=== PATIENT | female | born 1955 | race Caucasian/White ===

== ENCOUNTER 2022-04-22 18:03 | Outpatient (REF) | payer MEDICARE, SELFPAY ==
[2022-04-22 16:50] LABS: ALT 26 U/L (14-59); AST 19 U/L (15-37); Albumin 3.8 g/dL (3.4-5.0); Alkaline Phosphatase 111 U/L (46-116); Anion Gap 6.8 mmol/L (3-11); BUN 10 mg/dL (7-18); Bilirubin, Total 0.4 mg/dL (0.2-1.0); CO2 30.2 mmol/L (21.0-32.0); CREATININE 0.8 mg/dL (0.55-1.02); Calculated LDL 143 mg/dL (<100); Chloride 102 mmol/L (98-107); Cholesterol 226 mg/dL (<200); Glucose 109 mg/dL (74-106); HDL Cholesterol 56 mg/dL (40-60); Potassium 3.9 mmol/L (3.5-5.1); Sodium 139 mmol/L (136-145); Total Protein 7.2 g/dL (6.4-8.2); Triglyceride 137 mg/dL (<150)
== END 2022-04-22 18:04 | disposition home or self-care (01) ==
LOC: NCHCN 18:03
PROVIDERS: PCP Nurse Practitioner Family; Visit Provider Physician Assistant Medical
DX: I10 Essential (primary) hypertension (principal); E78.5 Hyperlipidemia, unspecified
CPT/HCPCS: 80053; 80061

== ENCOUNTER 2023-04-18 15:09 | Outpatient (REF) | payer OTHER, SELFPAY ==
[2023-04-18 22:26] LABS: Anion Gap 5.8 mmol/L (3-11); BUN 12 mg/dL (7-18); CO2 30.2 mmol/L (21.0-32.0); CREATININE 0.9 mg/dL (0.55-1.02); Calcium 8.9 mg/dL (8.5-10.1); Chloride 104 mmol/L (98-107); Estimated GFR 70.51 (mL/min/1.73m2); Glucose 105 mg/dL (74-106); Potassium 4.4 mmol/L (3.5-5.1); Sodium 140 mmol/L (136-145)
== END 2023-04-18 15:10 | disposition home or self-care (01) ==
LOC: NCHCN 15:09
PROVIDERS: PCP Nurse Practitioner Family; Visit Provider Physician Assistant Medical
DX: I10 Essential (primary) hypertension (principal)
CPT/HCPCS: 80048

== ENCOUNTER 2023-04-27 17:19 | Outpatient (REF) | payer OTHER, SELFPAY | END 2023-04-27 17:20 | disposition home or self-care (01) | LOC: NCHCN 17:19 | PROVIDERS: PCP Nurse Practitioner Family; Visit Provider Nurse Practitioner Family | DX: R30.0 Dysuria (principal) | CPT/HCPCS: 87077; 87086; 87186 ==

== ENCOUNTER 2024-02-13 15:43 | Outpatient (REF) | payer OTHER, SELFPAY ==
[2024-02-13 18:58] LABS: Hemoglobin A1C 5.5 % (<5.7)
[2024-02-13 19:08] LABS: ALT 29 U/L (14-59); AST 19 U/L (15-37); Albumin 3.8 g/dL (3.4-5.0); Alkaline Phosphatase 105 U/L (46-116); Bilirubin, Total 0.4 mg/dL (0.2-1.0); Calculated LDL 112 mg/dL (<100); Cholesterol 198 mg/dL (<200); HDL Cholesterol 64 mg/dL (40-60); Total Protein 7.1 g/dL (6.4-8.2); Triglyceride 112 mg/dL (<150)
[2024-02-13 19:20] LABS: Bilirubin, Direct 0.1 mg/dL (0.0-0.2)
== END 2024-02-13 15:44 | disposition home or self-care (01) ==
LOC: NCHCN 15:43
PROVIDERS: PCP Nurse Practitioner Family; Visit Provider Physician Assistant Medical
DX: K81.9 Cholecystitis, unspecified (principal); E78.5 Hyperlipidemia, unspecified; R73.03 Prediabetes
CPT/HCPCS: 80061; 80076; 83036

== ENCOUNTER 2024-07-08 13:56 | Outpatient (REF) | payer MEDICARE, SELFPAY ==
--- OUTSIDE RECORDS SUMMARY | 2024-07-08 14:19 | XMS_ITS | Continuity of Care Document ---
Author Organization [facility] Address [address] [place] [address] Assessment Encounter Date Assessment Date Assessment LastModified by Organization Details LastModified Time 07/08/2024 07/08/2024 Patient presents with symptoms of UTI. Results of dipstick were positive for UTI. Advised to drink clear fluids, Tylenol for pain and take prescribed medications as instructed. Patient encouraged to follow up within 1 week if not improving. [email or web address] Not available 07/08/2024 11:26:37 Plan of Treatment Reminders Order Date Submit Date Provider Last Modified By Organization Details Last Modified Time Details Appointments Office Visit 2023 09:40A M Not available Not available Not available Medica re Annual Wellne ss 40 2023 01:00P M Not available Not available Not available Lab cultur e, urine + sensit ivity 2023 024 [facility] [address] [place] [address] [place], [address], 07/08/2024 13:36:10 urinal ysis, dipsti ck 2023 [facility] [address] [place], [address], 07/08/2024 13:36:10 Referral gyneco logist referr al - for bladde r prolap se, gettin g progre ssivel y worse over past year, intere sted in discus sing surgic al repair [facility]23 [facility], [address], [place], [address], 07/08/2024 12:40:30 Procedures None record ed. Surgeries None record ed. Imaging None record ed. Medication Orders Macrob id 100 mg capsul e 2023 024 [id number], [address] [place], [place], [id number], 07/08/2024 10:30:28 Patient TargetsNo targets recorded. Patient InstructionsNo instructions recorded. Reason for Referral Urogynecologist Referral for Prolapse of female genital organs Referring Physician: Amalia Kay, Family Medicine, Encounter Date: 02/13/2024 Budget Manager Referral for Di sorder of urinary bladder for bladder prolapse, getting progressively worse over past year, interested in discussing surgical repair Referring Physician: Carolyn Lennon, [facility], Encounter Date: 07/08/2024 Results Created Date Observation Date Name Description Value Unit Range Abnormal Flag Note LastModifiedBy Organization Detail LastModifiedTime 07/08/2007/08/2024 urina lysis , dipst ick Leukocytes Large Not Available [address], [address], 07/08/2024 10:31:25 07/08/20 24 07/08/2024 urina lysis , dipst ick Nitrite negati ve Not Available [address], [address], 07/08/2024 10:31:25 07/08/20 24 07/08/2024 urina lysis , dipst ick Urobilinogen .2 Not Available [address], [address], 07/08/2024 10:31:25 07/08/20 24 07/08/2024 urina lysis , dipst ick Protein Trace Not Available [address], [place], [address], 07/08/2024 10:31:25 07/08/20 24 07/08/2024 urina lysis , dipst ick pH 6.0 Not Available [facility] [address] [place], [address], 07/08/2024 10:31:25 07/08/20 24 07/08/2024 urina lysis , dipst ick Blood Non-He molyze d: Modera te Not Available [facility] [address] [place], [address], 07/08/2024 10:31:25 07/08/20 24 07/08/2024 urina lysis , dipst ick Specific [place] 1.015 Not Available [address], [address], 07/08/2024 10:31:25 07/08/20 24 07/08/2024 urina lysis , dipst ick Ketone Negati ve Not Available [address], [address], 07/08/2024 10:31:25 07/08/20 24 07/08/2024 urina lysis , dipst ick Bilirubin Negati ve Not Available [address], [address], 07/08/2024 10:31:25 07/08/20 24 07/08/2024 urina lysis , dipst ick Glucose Negati ve Not Available [address], [address], 07/08/2024 10:31:25 07/08/20 24 07/08/2024 urina lysis , dipst ick Appearance Cloudy Not Available [address], [address], 07/08/2024 10:31:25 07/08/20 24 07/08/2024 urina lysis , dipst ick Color Yellow Not Available [facility] [address] [facility], [place], [address], 07/08/2024 10:31:25 06/23/20 24 09/30/2020 MAMMO , diagn ostic No observ ation record ed. Not Available 06/23 23:03:16 06/23/20 24 01/26/2021 CT, head or brain No observ ation record ed. Not Available 06/23 23:03:17 06/23/20 24 12/09/2020 US, abdom en No observ ation record ed. Not Available 06/23 23:03:18 06/23/20 24 02/01/2021 imagi ng/di agnos tic resul t No observ ation record ed. Not Available 06/23 23:03:19 Result Notes None recorded. Problems Name Problem SNOMED Code Status Onset Date Resolution Date Notes Provider Name and Address Organization Details Recorded Time Wilmer tamez wandyen rosa 48492696 Active 202104/18/20 23 - Comments only - Amalia Kay PA-C - Today's BP suggests fair control on HCTZ 12.5mg QD. Problem Code: I10; Problem Code Type: ICD-10; Not Available [facility] 3 05:10:42 Headache 86343095 Active 2021 Problem Code: R51.9; Problem Code Type: ICD-10; Not Available [facility] 05:10:42 Cervical radiculo brandt 98057751 Active 202104/29/20 22 - Comments only - Amalia Wolfe Sxs stable at present with chiropra ctic treatmen t alone. Will give further consider ation towards scheduli ng for imaging studies to guide pain clinic vs neurosur rohit interven tions if sxs prove progress maureen in the future. Problem Code: M54.12; Problem Code Type: ICD-10; Not Available [facility] 3 05:10:42 Hyperlip idemia 36634241 Active 2021 Problem Code: E78.5; Problem Code Type: ICD-10; Not Available [facility] 3 05:10:42 Spasm 53367386 Active 2021 Problem Code: M62.838; Problem Code Type: ICD-10; Not Available [facility] 3 05:10:42 Fatigue 70009062 Active 2021 Problem Code: R53.83; Problem Code Type: ICD-10; Not Available [facility] 3 05:10:42 Counseli ng Completed 202105/06/2022 04/29/20 22 - Comments only - Amalia Kay PA-C - Old records from previous provider reviewed and flagged for chart updating Problem Code: Z71.89; Problem Code Type: ICD-10; Not Available [facility] 3 05:10:42 Prediabe partha 159417012 Active 202104/18/20 23 - Comments only - Amalia Kay PA-C - - PREDM As it was overlook ed again today, will plan to repeat A1C with next visit as monitori ng Problem Code: R73.03; Problem Code Type: ICD-10; Not Available [facility] 3 05:10:42 Dysuria 11193641 Active 2022 Problem Code: R30.0; Problem Code Type: ICD-10; Not Available [facility] 3 05:10:43 Disorder of urinary bladder 46503061 Active 202204/30/20 23 - Comments only - Carolyn Dougherty [facility] - - Referral generate d to Dr Brooks at [facility] Problem Code: N32.9; Problem Code Type: ICD-10; Not Available [facility] 3 05:10:43 Cholecys tectomy Active 2023 darin at [facility] in [place], [place] Tonya Colby RN null, [facility] 4 13:35:06 Problem Notes None recorded. Medical Equipment None Reported. Allergies Allergen ID Allergen Name Allergen Category Reaction Reaction Severity Criticality Documentation Date Start Date Code Code System Note Provider Name and Address Organization Details Recorded Time 44409 Medicinal product containin g penicilli n and acting as antibacte rial agent (product) medicatio n rash moderate Not available 08/18/20232021 25662 05 SNOMED rash Aller gyNam e: 'PENC ILLIN '; Not Available [facility] 3 16:19:12 48234 doxycycli ne monohydra te medicatio n rash moderate Not available 08/18/20232021 58522 2 RxNorm rash Not Available [facility] 3 16:19:12 99280 Bactrim medicatio n rash moderate Not available 08/18/20232021 30125 9 RxNorm rash Not Available [facility] 3 16:19:12 23861 Keflex medicatio n rash vomiting Not available Not available unabletoasse 07/08/2024 14960 [address], [place], [address] , [facility] 4 10:26:28 90942 Levaquin medicatio n rash vomiting Not available Not available unabletoasse 07/08/2024 [address], [place], [address] , [facility] 4 10:27:20 Medications Name Sig Start Date Stop Date Status Note LastModified by Organization Details LastModified Time Prescript ion - Renewal active mont[place] ast 10 mg tablet, hydrochl orothiaz fernando 12.5 mg tablet Not Available Not Available Not Available cyclobenz aprine 10 mg tablet Take 1 tablet by mouth three times a day as needed 04/22 completed Not Available Not Available Not Available azithromy juan 250 mg tablet TAKE 2 TABLETS (500 MG) BY ORAL ROUTE ONCE DAILY FOR 1 DAY THEN 1 TABLET (250 MG) BY ORAL ROUTE ONCE DAILY FOR 4 DAYS active Not Available Not Available No t Available fosfomyci n trometham ine 3 gram oral packet Take 1 packet by mouth single dose Mix one packet in 8 oz. water 05/09 completed Not Available Not Available Not Available IBU 800 mg tablet Take 1 tablet by mouth every eight hours as needed 02/12 completed Not Available Not Available Not Available Macrobid 100 mg capsule Take 1 capsule by mouth twice a day 2023 active Not Available Not Available Not Avai lable gabapenti n 300 mg capsule Take 1 capsule by mouth once a day 04/22 completed Not Available Not Available Not Available monteluka st 10 mg tablet TAKE 1 TABLET EVERY DAY active Not Available Not Available No t Available hydrochlo rothiazid e 12.5 mg tablet TAKE 1 TABLET EVERY DAY active Not Available Not Available No t Available Vitamin D3 125 mcg (5,000 unit) tablet Take 1 tablet by mouth once a day active Not Available Not Available No t Available Vitals Date Recorded Body height Heart rate Body mass index (BMI) Body weight Systolic blood pressure Diastolic blood pressure Provider Name and Address Organization Details Last Updated DateTime 4 160.02 cm 76 /min 22.3 kg/m2 90657.6 4 g 150 mm[Hg] 74 mm[Hg] Tanja neal LPN [facility] 4 09:51:44 Social History None recorded. Functional Status None recorded. Mental Status None recorded. Family History Relationship Description Onset Age of this Age Resolved Age Notes LastModified by Organization Details LastModified Time Father Family history of Hypertension deaswati [email or web address] Not available 08/18/2023 04:00:43 Father No family history of respiratory disease deakatjaa keely [email or web address] Not available 08/18/2023 04:00:44 Mother Family history of malignant neoplasm metast atic pancre atic cancer [email or web address] Not available 08/18/2023 04:00:44 Medical History No medical history recorded. Gynecological HistoryNo gynecological history recorded. Obstetrics History GPAL:G 0 P 0 0 0 0 Immunizations Vaccine Type Date Status Provider Name and Address Organization Details Recorded Time Influenza, high-dose, quadrivalent, PF 07/29/2022 completed Not Available [facility] 08/18/2023 04:51:54 COVID-19, mRNA, LNP-S, bivalent, PF, 30 mcg/0.3 mL dose 07/29/2022 completed Not Available [facility] 08/18/2023 04:51:54 influenza, unspecified formulation 07/07/2020 completed Not Available [facility] 08/18/2023 04:51:55 influenza, unspecified formulation 07/26/2021 completed Not Available [facility] 08/18/2023 04:51:55 Past Encounters Encounter ID Performer Location Encounter Start Date Encounter Closed Date Diagnosis/Indication Diagnosis SNOMED-CT Code Diagnosis ICD10 Code [id number] JOANN FERNANDES [address] [address] 07/08/2024 09:45:10 07/08/2024 10:29:55 Acute urinary tract infection 190283894 N39.0 Disorder o f urinary bladder 44967142 N32.9 Health Concerns Section Related Observation LastModified by Organization Detai ls LastModified Time None Recorded Concern Status LastModified by Organization Details LastModified Time None Recorded Payers Encounter Date Sequence Insurance Name Policy Number Policy Lamb Covered Member ID Lamb Member ID Guarantor Name 07/08/2024 1 [employer] (MEDICARE REPLACEMENT/A DVANTAGE - PPO) Aimee Carmichael [id number] Aimee Carmichael Notes Date Note Type Note Provider Name and Address Organization Details Recorded Time 07/08/2024 text/html HPI Notes: Acute visit - dysuria, frequency, hematuria Cancelled 06/28/24 [facility] [place] - was taking care of brother in law who was newly on hospice. Would like closer referral if possible. Has a friend who had surgical repair for bladder prolapse at [facility]. Streaks of blood in her urine yesterday, ongoing dysuria. Onset of bladder spasms and increased frequency 06/02/24. Denies fever, chills, flank pain. JOANN NEAL [facility] [address], [place], [address], [facility]. 07/08/2024 11:27:52 OBGyn Episode No OBEpisode recorded.
--- OUTSIDE RECORDS SUMMARY | 2024-07-08 14:19 | XMS_ITS | Data Portability ---
Author Organization ID - [facility] Address [address] [place] [id number] Assessment Encounter Date Assessment Date Assessment LastModified by Organization Details LastModified Time 07/08/2024 07/08/2024 Patient presents with symptoms of UTI. Results of dipstick were positive for UTI. Advised to drink clear fluids, Tylenol for pain and take prescribed medications as instructed. Patient encouraged to follow up within 1 week if not improving. [email or web address] Not available 07/08/2024 11:26:37 Plan of Treatment Reminders Order Date Submit Date Provider Last Modified By Organization Details Last Modified Time Details Appointments Office Visit 30 2023 09:40A M Not available Not available Not available Medica re Annual Wellne ss 40 2023 01:00P M Not available Not available Not available Lab hepati c functi on panel, serum 2023 024 [place] [facility] (Registration ), [address] [place] [address] [place], [address], 02/13/2024 19:13:01 HbA1c (hemog lobin A1c), blood 2023 024 [email or web address] [facility] (Registration ), [address] [place] [address] [place], [address], 02/23/2024 08:00:48 lipid panel, serum 2023 024 [email or web address] [facility] (Registration ), [address] [place] [address] [place], [address], 02/23/2024 08:00:40 influe nza virus A + B + SARS-C oV-2 (COVID 19) Ag panel, rapid IA, upper respir atory specim en 2023 024 [email or web address] [facility], [address] [place], [address], 04/17/2024 14:00:42 cultur e, urine + sensit ivity 2023 024 [facility] (Registration ), [address] [place] [address] [place], [address], 07/08/2024 13:36:10 urinal ysis, dipsti ck 2023 024 [facility], [address] [place], [address], 07/08/2024 13:36:10 Referral urogyn ecolog ist referr al 2023 024 [facility], 1928–1983 Urogynecology , [address] [place], [address], 07/06/2024 04:07:48 gyneco logist referr al - for bladde r prolap se, gettin g progre ssivel y worse over past year, intere sted in discus sing surgic al repair 2023 024 [facility], [address] [facility], [place], [address], 07/08/2024 12:40:30 Procedures None record ed. Surgeries None record ed. Imaging None record ed. Medication Orders Zithro max Z-Sp 250 mg tablet 2023 024 [id number], [address] [place] [address], [id number], 04/17/2024 14:01:04 Macrob id 100 mg capsul e 2023 024 [place] [id number], [address], [place], [phone], 07/08/2024 10:30:28 Patient TargetsNo targets recorded. Patient InstructionsNo instructions recorded. Reason for Referral Urogynecologist Referral for Prolapse of female genital organs Referring Physician: Isabelle Rios, Family Medicine, Encounter Date: 02/13/2024 [employer] Assurance Lab Technician Referral for Di sorder of urinary bladder for bladder prolapse, getting progressively worse over past year, interested in discussing surgical repair Referring Physician: Carolyn Lennon, Family Medicine, Encounter Date: 07/08/2024 Results Created Date Observation Date Name Description Value Unit Range Abnormal Flag Note LastModifiedBy Organization Detail LastModifiedTime 02/13/20 24 02/13/2024 HEMOG LOBIN A1C hemoglobin A1C 5.5 % <5.7 Refer ence Range s <5.7 Blanca l 5.7-6 .4% Predi abete s 6.5% or great er Diagn ostic for diabe partha (if confi rmed) Refer ences : 1. Ameri can Diabe partha Assoc iatio n. Clas sific ation and Diagn osis of Diabe partha. Diabe partha Care 2019 Oct;4 2(Sup pleme nt 1):S1 3-s28 . Not Available [address] [place], [address] 02/13/2024 19:12:00 02/13/2002/13/2024 LIVER PANEL total protein 7.1 g/dL 6.4-8. 2 normal Not Available [address] [place], [address] 02/13/2024 19:23:01 02/13/20 24 02/13/2024 LIVER PANEL albumin 3.8 g/dL 3.4-5. 0 normal Not Available [address] [place], [address] 02/13/2024 19:23:01 02/13/20 24 02/13/2024 LIVER PANEL bilirubin, total 0.4 mg/dL 0.2-1. 0 normal Not Available [address] [place], [address] 02/13/2024 19:23:01 02/13/20 24 02/13/2024 LIVER PANEL alk phos 105 U/L 46-116 normal Not Available [address] [place], [address] 02/13/2024 19:23:01 02/13/20 24 02/13/2024 LIVER PANEL AST 19 U/L 15-37 normal Not Available [facility] [address] [place], [address] 02/13/2024 19:23:01 02/13/20 24 02/13/2024 LIVER PANEL ALT 29 U/L 14-59 normal Not Available [facility] [address] [place], [address] 02/13/2024 19:23:01 02/13/20 24 02/13/2024 LIVER PANEL bilirubin, conjugated 0.1 mg/dL 0.0-0. 2 normal Not Available [address] [place], [address] 02/13/2024 19:23:01 02/13/20 24 02/13/2024 LIPID 2 cholesterol 198 mg/dL <200 Not Available [address] [place], [address] 02/13/2024 19:13:01 02/13/20 24 02/13/2024 LIPID 2 triglyceride 112 mg/dL <150 Not Available [address] [place], [address] 02/13/2024 19:13:01 02/13/20 24 02/13/2024 LIPID 2 HDL cholesterol 64 mg/dL 40-60 Not Available [facility] [address] [place], [address] 02/13/2024 19:13:01 02/13/20 24 02/13/2024 LIPID 2 calculated LDL 112 mg/dL <100 high Natio nal Екатерина stero l Educa tion Progr am (NCEP -ATPI II) class ifica tions : Екатерина stero l <200 mg/dL Sanaz able Екатерина stero l 200-2 39 mg/dL Borde rline High Екатерина stero l >or=2 40 mg/dL High HDL <40 mg/dL Low HDL >or=6 0 mg/dL High LDL <100 mg/dL Optim al LDL 100-1 29 mg/dL Near Optim al/Ab ove Optim al LDL 130-1 59 mg/dL Borde rline High LDL 160-1 89 mg/dL High LDL >or=1 90 mg/dL Very High *The above refer ence range is for adult s 18 years or older . Not Available [address] [place], [address] 02/13/2024 19:13:01 02/13/20 24 02/13/2024 LIPID 2 cholesterol 198 mg/dL <200 Not Available [address] [place], [address] 02/13/2024 19:23:03 02/13/20 24 02/13/2024 LIPID 2 triglyceride 112 mg/dL <150 Not Available [address] [place], [address] 02/13/2024 19:23:03 02/13/20 24 02/13/2024 LIPID 2 HDL cholesterol 64 mg/dL 40-60 Not Available [address] [place], [address] 02/13/2024 19:23:03 02/13/20 24 02/13/2024 LIPID 2 calculated LDL 112 mg/dL <100 high Natio nal Екатерина stero l Educa tion Progr am (NCEP -ATPI II) class ifica tions : Екатерина stero l <200 mg/dL Sanaz able Екатерина stero l 200-2 39 mg/dL Borde rline High Екатерина stero l >or=2 40 mg/dL High HDL <40 mg/dL Low HDL >or=6 0 mg/dL High LDL <100 mg/dL Optim al LDL 100-1 29 mg/dL Near Optim al/Ab ove Optim al LDL 130-1 59 mg/dL Borde rline High LDL 160-1 89 mg/dL High LDL >or=1 90 mg/dL Very High *The above refer ence range is for adult s 18 years or older . Not Available [facility] [address] [place], [address] 02/13/2024 19:23:03 04/17/20 24 04/17/2024 influ jossie virus A + B + SARS- CoV-2 (COVI D19) Ag panel , rapid IA, upper respi rator y speci men Influenza A negati ve Not Available [facility] [address] [place], [address], 04/17/2024 09:59:12 04/17/20 24 04/17/2024 influ jossie virus A + B + SARS- CoV-2 (COVI D19) Ag panel , rapid IA, upper respi rator y speci men Influenza B negati ve Not Available [facility] [address] [place], [address], 04/17/2024 09:59:12 04/17/20 24 04/17/2024 influ jossie virus A + B + SARS- CoV-2 (COVI D19) Ag panel , rapid IA, upper respi rator y speci men SARS-COV-2 negati ve Not Available [facility] [address] [place], [address], 04/17/2024 09:59:12 04/17/20 24 04/17/2024 influ jossie virus A + B + SARS- CoV-2 (COVI D19) Ag panel , rapid IA, upper respi rator y speci men Sample sent for PCR confirmation No Not Available [facility] [address] [place], [address], 04/17/2024 09:59:12 07/08/20 24 07/08/2024 urina lysis , dipst ick Leukocytes Large Not Available [facility] [address] [place], [address], 07/08/2024 10:31:25 09/30/20 24 07/08/2024 urina lysis , dipst ick Nitrite negati ve Not Available [address], [address], 07/08/2024 10:31:25 07/08/20 24 07/08/2024 urina lysis , dipst ick Urobilinogen .2 Not Available [address], [address], 07/08/2024 10:31:25 07/08/20 24 07/08/2024 urina lysis , dipst ick Protein Trace Not Available [address], [address], 07/08/2024 10:31:25 07/08/20 24 07/08/2024 urina lysis , dipst ick pH 6.0 Not Available [address], [address], 07/08/2024 10:31:25 07/08/20 24 07/08/2024 urina lysis , dipst ick Blood Non-He molyze d: Modera te Not Available [address], [address], 07/08/2024 10:31:25 07/08/20 24 07/08/2024 urina lysis , dipst ick Specific [place] 1.015 Not Available [address], [address], 07/08/2024 10:31:25 07/08/20 24 07/08/2024 urina lysis , dipst ick Ketone Negati ve Not Available [address], [address], 07/08/2024 10:31:25 09/30/07/08/2024 urina lysis , dipst ick Bilirubin Negati ve Not Available [facility] [address] [place], [address], 07/08/2024 10:31:25 07/08/20 24 07/08/2024 urina lysis , dipst ick Glucose Negati ve Not Available [facility] [address] [place], [address], 07/08/2024 10:31:25 07/08/20 24 07/08/2024 urina lysis , dipst ick Appearance Cloudy Not Available [facility] [address] [place], [address], 07/08/2024 10:31:25 07/08/20 24 07/08/2024 urina lysis , dipst ick Color Yellow Not Available [facility] [address] [place], [address], 07/08/2024 10:31:25 06/23/20 24 09/30/2020 MAMMO , [...] and Address Organization Details Recorded Time Wilmer joi sabasarah schofieldon [id number] Active 202104/18/20 23 - Comments only - Isabelle Rios PA-C - Today's BP suggests fair control on HCTZ 12.5mg QD. Problem Code: I10; Problem Code Type: ICD-10; Not Available [facility] 3 05:10:42 Headache 44996462 Active 2021 Problem Code: R51.9; Problem Code Type: ICD-10; Not Available [facility] 3 05:10:42 Cervical radiculo brandt 56149817 Active 202104/29/20 22 - Comments only - Isabelle Rios PA-C - Sxs stable at present with chiropra ctic treatmen t alone. Will give further consider ation towards scheduli ng for imaging studies to guide pain clinic vs neurosur rohit interven tions if sxs prove progress maureen in the future. Problem Code: M54.12; Problem Code Type: ICD-10; Not Available [facility] 3 05:10:42 Hyperlip idemia 17909949 Active 2021 Problem Code: E78.5; Problem Code Type: ICD-10; Not Available [facility] 3 05:10:42 Spasm 04360978 Active 2021 Problem Code: M62.838; Problem Code Type: ICD-10; Not Available [facility] 3 05:10:42 Fatigue 44533287 Active 2021 Problem Code: R53.83; Problem Code Type: ICD-10; Not Available [facility] 3 05:10:42 Counseli ng Completed 202105/06/2022 04/29/20 22 - Comments only - Isabelle Rios PA-C - Old records from previous provider reviewed and flagged for chart updating Problem Code: Z71.89; Problem Code Type: ICD-10; Not Available [facility] 3 05:10:42 Prediabe partha 171715326 Active 202104/18/20 23 - Comments only - Isabelle Rios PA-C - - PREDM As it was overlook ed again today, will plan to repeat A1C with next visit as monitori ng Problem Code: R73.03; Problem Code Type: ICD-10; Not Available [facility] 3 05:10:42 Dysuria 44762354 Active 2022 Problem Code: R30.0; Problem Code Type: ICD-10; Not Available [facility] 3 05:10:43 Disorder of urinary bladder 92358546 Active 202204/30/20 23 - Comments only - Carolyn Colvin -Willie [facility]- - - Referral generate d to Dr Brooks at [facility] Urology Problem Code: N32.9; Problem Code Type: ICD-10; Not Available [facility] 3 05:10:43 Cholecys tectomy Active 2023 [facility] [place] [facility] [place], [place] Tonya Colby RN [facility] 4 13:35:06 Problem Notes None recorded. Procedures Surgical History None recorded. Imaging Results Imaging Date Name Status LastModified by Organiz ation Details LastModified Time 09/30/2020 MAMMO, diagnostic completed Information not available 06/23/2024 23:03:16 01/26/2021 CT, head or brain completed Information not available 06/23/2024 23:03:17 12/09/2020 US, abdomen completed Information n ot available 06/23/2024 23:03:18 02/01/2021 imaging/diagnos tic result completed Information not available 06/23/2024 23:03:19 Procedure Notes None recorded. Medical Equipment None Reported. Allergies Allergen ID Allergen Name Allergen Category Reaction Reaction Severity Criticality Documentation Date Start Date Code Code System Note Provider Name and Address Organization Details Recorded Time 80242 Medicinal product containin g penicilli n and acting as antibacte rial agent (product) medicatio n rash moderate Not available 08/18/20232021 67516 05 SNOMED rash Aller gyNam e: 'PENC ILLIN '; Not Available [facility] 3 16:19:12 25982 doxycycli ne monohydra te medicatio n rash moderate Not available 08/18/20232021 2 RxNorm rash Not Available [facility] 3 16:19:12 22949 Bactrim medicatio n rash moderate Not available 08/18/20232021 75017 9 RxNorm rash Not Available [facility] 3 16:19:12 01170 Keflex medicatio n rash vomiting Not available [facility] 07/08/2024 57746 7 RxNorm CAROLYN MANJARREZ [facility] [address], [place], [address], [facility] 4 10:26:28 89673 Levaquin medicatio n rash vomiting Not available Not available [facility] 07/08/2024 50845 2 RxNorm CAROLYN MANJARREZ [facility] [address], [place], [address] , [facility] 4 10:27:20 Medications Name Sig Start [...] Vitals Date Recorded Body height Heart rate Oxygen saturation Oxygen saturation in Arterial blood by Pulse oximetry Body temperature Body mass index (BMI) Body weight Systolic blood pressure Diastolic blood pressure Provider Name and Address Organization Details Last Updated DateTime 4 160.02 cm 73 /min 95 % 95 % 97 [degF] 23.5 kg/m2 57820.3 5 g 102 mm[Hg] 60 mm[Hg] Tanja neal [facility] 4 13:05:43 Date Recorded Body height Body temperature Heart rate Systolic blood pressure Diastolic blood pressure Provider Name and Address Organization Details Last Updated DateTime 04/17/2024 160.02 cm 98.5 [degF] 76 /min 142 mm[Hg] 70 mm[Hg] CORDELL VALLE [facility] 4 13:39:54 Date Recorded Body height Heart rate Body mass index (BMI) Body weight Systolic blood pressure Diastolic blood pressure Provider Name and Address Organization Details Last Updated DateTime 4 160.02 cm 76 /min 22.3 kg/m2 74169.6 4 g 150 mm[Hg] 74 mm[Hg] Tanja neal [facility] 4 09:51:44 Social History None recorded. Functional Status None recorded. Mental Status None recorded. Family History Relationship Description Onset Age of this Age Resolved Age Notes LastModified by Organization Details LastModified Time Father Family history of Hypertension deaswati [email or web address] Not available 08/18/2023 04:00:43 Father No family history of respiratory disease deacea keely Not available 08/18/2023 04:00:44 Mother Family history of malignant neoplasm metast atic pancre atic cancer Not available 08/18/2023 04:00:44 Medical History No medical history recorded. Gynecological HistoryNo gynecological history recorded. Obstetrics History GPAL:G 0 P 0 0 0 0 Immunizations Vaccine Type Date Status Provider Name and Address Organization Details Recorded Time Influenza, high-dose, quadrivalent, PF 07/29/2022 completed Not Available [facility] 08/18/2023 04:51:54 COVID-19, mRNA, LNP-S, bivalent, PF, 30 mcg/0.3 mL dose 07/29/2022 completed Not Available [facility] 08/18/2023 04:51:54 influenza, unspecified formulation 07/07/2020 completed Not Available [facility] 08/18/2023 04:51:55 influenza, unspecified formulation 07/26/2021 completed Not Available [facility] 08/18/2023 04:51:55 Past Encounters Encounter ID Performer Location Encounter Start Date Encounter Closed Date Diagnosis/Indication Diagnosis SNOMED-CT Code Diagnosis ICD10 Code [id number] ISABELLE RIOS PA-C [address] [address] 02/13/2024 12:29:34 02/13/2024 14:46:53 Cholecystitis 11312791 K81.9 Dyslipidemia 355185617 E 78.5 Prediabetes 539713241 R7 3.03 Essential hypertension 03888649 I10 Prolapse o f female genital organs 94703847 N81.9 [id number] ISABELLE RIOS PA-C [address] [address] 04/17/2024 13:27:10 04/17/2024 13:54:35 Acute upper respiratory infection 88367299 J06.9 [id number] RASHIDA FERNANDESP-BC [address] [address] 07/08/2024 09:45:10 07/08/2024 10:29:55 Acute urinary tract infection 946051928 N39.0 Disorder o f urinary bladder 54847292 N32.9 Health Concerns Section Related Observation LastModified by Organization Detai ls LastModified Time None Recorded Concern Status LastModified by Organization Details LastModified Time None Recorded Advance Directives Directive None Recorded Payers Encounter Date Sequence Insurance Name Policy Number Policy Lamb Covered Member ID Lamb Member ID Guarantor Name 02/13/2024 1 [employer] (MEDICARE REPLACEMENT/A DVANTAGE - PPO) [facility] [id number] [facility] 04/17/2024 1 HUMAN[employer]erry (MEDICARE REPLACEMENT/A DVANTAGE - PPO) [id number] 07/08/2024 1 [employer]erry (MEDICARE REPLACEMENT/A DVANTAGE - PPO) [facility] [id number] Notes Date Note Type Note Provider Name and Address Organization Details Recorded Time 02/13/2024 text/html HPI Notes: 68y/o female presenting for f/u hospitalization. Karlee required to seek evaluation via ED in [place] 11/08/23 due to acute abdominal pain. Ultimately was found to be suffering acute cholecystitis and underwent cholecystectomy the following day. D/C'd to 11/10/23. On presentation today, patient reports she has recovered well s/p surgery. Has been following low fat diet due to lipid levels reported to have been found significantly elevated during hospital stay. Denies ongoing abdominal pain. No issues with indigestion or N/V. Bowels moving OK. Afebrile. Karlee mentions ongoing issues with ?bladder prolapse, for which she was previously treated with course of pelvic floor PT historically. Referred to [facility] urology by SATNAM boswell in April, however, CXd due to specialty service provided indicated they did not offer treatment for this condition. On presentation today, Karlee reports feeling of pelvic/vaginal pressure with prolonged standing. No acute irritative voiding sxs, gross hematuria, and/or issues with urinary incontinence. Likewise, denies abnormal vaginal d/c or skin breakdown issues. [address], [place], [address], [facility]. 02/19/2024 14:28:57 04/17/2024 text/html HPI Notes: 68y/o female presenting with c/o ?sinus infection. Karlee reports that over the past week she has felt ill with URI sxs. Describes more acute onset of intense sinus congestion with purulent nasal drainage. Face and dentures/jaws ache; ears sore today. Denies cough. Without fever. No acute GI upset in the form of N/V/D. [address], [place], [address], [facility], [facility]. 04/17/2024 14:01:00 07/08/2024 text/html HPI Notes: Acute visit - dysuria, frequency, hematuria Cancelled 06/28/24 [facility] Urogyn appt - was taking care of brother in law who was newly on hospice. Would like closer referral if possible. Has a friend who had surgical repair for bladder prolapse at [facility]. Streaks of blood in her urine yesterday, ongoing dysuria. Onset of bladder spasms and increased frequency 06/02/24. Denies fever, chills, flank pain. CAROLYN LENNON, ADULT CROSSING GUARD- [address], [place], [address], [facility]. 07/08/2024 11:27:52 OBGyn Episode No OBEpisode recorded.
--- OUTSIDE RECORDS SUMMARY | 2024-07-08 14:20 | XMS_ITS | Encounter Summary ---
Author Organization [facility] [place] [address] Care Team Providers Care Delivery Driver/Customer Service Name Role Phone Unavailable Primary Care Provider Unavailabl e Encounter Details Date Type Department Care Team (Latest Contact Info) Description 05/07/2020 8:52 AM EDT - 05/07/2020 11:59 PM EDT Hospital Encounter Laboratory [facility] [place] [phone] Discharge Disposition: Home Social History Tobacco Use Types Packs/Day Years Used Date Smoking Tobacco: Never Assessed Sex and Gender Information Value Date Recorded Sex Assigned at Not on file Gender Identity Not on file Sexual Orientation Not on file documented as of this encounter Plan of Treatment Not on file documented as of this encounter Procedures Procedure Name Priority Date/Time Associated Diagnosis Comments COVID-19 PCR Routine 05/07/2020 1:40 PM EDT documented in this encounter Results * COVID-19 PCR (05/07/2020 1:40 PM EDT) SARS-CoV-2 RNA Not Detected Not Detected [facility] Comment: This result should be interpreted in combination with the clinical observations, patient history and epidemiological information. For testing of asymptomatic individuals, assay performance characteristics and clinical utility have not been evaluated. Testing for SARS-CoV-2 (Severe acute respiratory syndrome coronavirus 2, formerly known as 2019 novel coronavirus or 2019-nCoV) to aid in the diagnosis of COVID-19 is performed using the Robles RealTime SARS-CoV-2 as authorized by the FDA Emergency Use Authorization (EUA). This EUA assay is intended for In-vitro Diagnostic (IVD) use with respiratory specimens such as nasopharyngeal swabs collected from individuals during the acute phase of infection. This assay is performed based on the instructions for use provided by the [employer] and additional guidance provided by CDC and FDA. Testing is performed in the Clinical Genomics and Advanced Technology Laboratory within the Department of Pathology and Laboratory Medicine at [facility], certified under the Clinical Laboratory Improvement Amendments of 1988 (CLIA), 42 U.S.C. section 263a, to perform high complexity tests. Assay performance has been verified according to clinical laboratory regulatory requirements. Test results are provided above. A result of Not Detected indicates that the viral RNA target is not present but does not preclude SARS-CoV-2 infection. False negative results may occur if a specimen is improperly collected, transported or handled; if amplification inhibitors are present; or if inadequate numbers of viral particles are present in the specimen. A result of Detected suggests a current or recent infection and the patient is presumed to be infected. As required or requested by public health authorities, positive specimens may be sent for additional testing. Positive and negative predictive values for this test are highly dependent on disease prevalence. A result of Invalid indicates that neither the viral RNA targets nor the internal control target was detected. An invalid result suggests the presence of inhibitors. Recollection is recommended in the case of an invalid result. CDC COVID-19 criteria for testing on human specimens and clinical management guidance information are available at the CDC Coronavirus Disease 2019 (COVID-19) webpage under Information for Healthcare Professionals (https://www.cdc.gov/coronavirus/2019-ncov/hcp/index.html) Additional information about this and other EUA tests can be found in provider and patient fact sheets at the following FDA website: https://www.fda.gov/medical-devices/gillxrfdl-yuxaiwrmkg-vidujrm-devices/emergen -us e-authorizations#uaclg34olr SARS-CoV-2 RNA Source GOVERNMENT MINISTER Swab [facility] Nasopharyngeal swab (specimen) BOTH ANTERIOR NARES / Unknown Other / Unknown 05/07/2020 1:40 PM EDT 05/10/2020 2:20 PM EDT Narrative Resulting Agency Comment Spec In Lab Hal Canales MD MOLECULAR ORDERABLES [facility] [place] [address] documented in this encounter Visit Diagnoses Not on filedocumented in this encounter
--- OUTSIDE RECORDS SUMMARY | 2024-07-08 14:20 | XMS_ITS | Encounter Summary ---
Author Organization [facility] [place] [address] Care Team Providers Care Supervisor Printing Shop Name Role Phone Unavailable Primary Care Provider Unavailabl e Encounter Details Date Type Department Care Team (Latest Contact Info) Description 08/03/2020 6:32 PM EDT - 08/03/2020 11:59 PM EDT Hospital [place] [phone] Discharge Disposition: Home Social History Tobacco Use [...] Date/Time Associated Diagnosis Comments COVID-19 PCR Routine 08/03/2020 3:33 PM EDT documented in this encounter Results * COVID-19 PCR (08/03/2020 3:33 PM EDT) SARS-CoV-2 RNA Not Detected Not Detected [facility] Comment: This result should be interpreted in combination with the clinical observations, patient history and epidemiological information in making a final diagnosis. For testing of asymptomatic individuals, assay performance characteristics and clinical utility have not been evaluated. Testing for SARS-CoV-2 (Severe acute respiratory syndrome coronavirus 2, formerly known as 2019 novel coronavirus or 2019-nCoV) to aid in the diagnosis of COVID-19 is performed using the [employer] m SARS-CoV-2 Assay as authorized by the FDA Emergency Use Authorization (EUA). This EUA assay is intended for In-vitro Diagnostic (IVD) use with respiratory specimens such as nasopharyngeal swabs collected from individuals during the acute phase of infection. This assay is performed based on the instructions for use provided by [employer] and additional guidance provided by CDC and FDA. Testing is performed in the Clinical Genomics and Advanced Technology Laboratory within the Department of Pathology and Laboratory Medicine at [facility], certified under the Clinical Laboratory Improvement Amendments of 1988 (CLIA), 42 U.S.C. 263a, to perform high complexity tests. Assay performance has been verified according to clinical laboratory regulatory requirements for use with specimens collected from individuals suspected of COVID-19. Test results are provided above. A result of ? Not Detected? indicates that the viral RNA target is not present above the limit of detection, but does not preclude SARS-CoV-2 infection. False negative results may occur if a specimen is improperly collected, transported or handled; if amplification inhibitors are present; or if inadequate numbers of viral particles are present in the specimen. When a diagnostic test is negative, the possibility of a false negative result should be considered in the context of a patient? s recent exposures and the presence of clinical signs and symptoms consistent with COVID-19. A result of ? Detected? indicates that RNA from SARS-CoV-2 was detected and the patient is infected. As required or requested by public health authorities, positive specimens may be sent for additional testing. Positive and negative predictive values for this test are highly dependent on disease prevalence. A result of ? Invalid? indicates that neither the viral RNA targets nor the internal control target was detected. An invalid result suggests the presence of inhibitors. Recollection and re-testing is recommended in the case of an invalid result. CDC COVID-19 criteria for testing on human specimens and clinical management guidance information are available at the CDC Coronavirus Disease 2019 (COVID-19) webpage under ? Information for Healthcare Professionals? (https://www.cdc.gov/coronavirus/2019-ncov/hcp/index.html) Additional information about this and other EUA tests can be found in provider and patient fact sheets at the following FDA website: https://www.fda.gov/medical-devices/ujdvowxodhs-ymfgmtk-8709-vyfom-04-naijltvla- use-a gdeqitgowyxuh-qlqbywm-ddblmvj/wnufv-vjmyvkpyzms-waml SARS-CoV-2 RNA Source Nasal [facility] Specimen from nose (specimen) Other / Unknown 08/03/2020 3:33 PM EDT 08/06/2020 8:54 PM EDT Narrative Resulting Agency Comment Spec In Lab Hal Canales MD MOLECULAR ORDERABLES [facility] [place] [address] documented in this encounter Visit Diagnoses Not on filedocumented in this encounter
--- OUTSIDE RECORDS SUMMARY | 2024-07-08 14:20 | XMS_ITS | Encounter Summary ---
Author Organization [facility] [place] [address] Care Team Providers Care Apprentice Embalmer Name Role Phone Unavailable Primary Care Provider Unavailabl e Encounter Details Date Type Department Care Team (Latest Contact Info) Description 01/19/2021 10:16 AM EDT - 01/19/2021 11:59 PM EDT Hospital [place] [phone] Discharge Disposition: Home Social History Tobacco Use [...] Date/Time Associated Diagnosis Comments COVID-19 PCR Routine 01/19/2021 10:01 AM EDT documented in this encounter Results * COVID-19 PCR (01/19/2021 10:01 AM EDT) SARS-CoV-2 RNA Not Detected Not Detected [facility] Comment: This result should be interpreted in combination with the clinical observations, patient history and epidemiological information. For testing of asymptomatic individuals, assay performance characteristics and clinical utility have not been evaluated. Testing for SARS-CoV-2 (Severe acute respiratory syndrome coronavirus 2, formerly known as 2019 novel coronavirus or 2019-nCoV) to aid in the diagnosis of COVID-19 is performed using the Aptima SARS Co-V-2 Assay on the [employer] System ([employer] as authorized by the FDA issued Emergency Use Authorization (EUA). This assay is intended for In-vitro Diagnostic (IVD) use with nasopharyngeal swabs collected from individuals meeting the CDC criteria for testing. The assay is performed based on the instructions for use and additional guidance provided by the FDA. Testing is performed in the Microbiology Laboratory within the Department of Pathology and Laboratory Medicine at [facility], certified under the Clinical Laboratory Improvement Amendments of 1988 (CLIA), 42 U.S.C. section 263a, to perform high-complexity tests. Assay performance has been verified according [...] the patient is presumed to be infected. Positive and negative predictive values for this test are highly dependent on disease prevalence. A result of Invalid indicates the inability to conclusively determine the presence or absence of SARS-CoV-2 RNA in the sample which can be due to a variety of factors. ??Collection of a new sample for repeat testing is recommended in the case of an invalid result. CDC COVID-19 criteria for testing on human specimens and clinical management guidance information are available at the CDC Coronavirus Disease 2019 (COVID-19) webpage under Information for Healthcare Professionals (https://www.cdc.gov/coronavirus/2019-ncov/hcp/index.html). Additional information about this and other EUA tests can be found in provider and patient fact sheets at the following FDA website: https://www.fda.gov/medical-devices/bonhupoxgha-ikayvhr-6760-mskuv-17-fnmbghbhg- use-a iaxgmgstbnsrs-sgxgrai-vspftvg/luzcn-qcvxxeywjbp-kqsy SARS-CoV-2 RNA Source Nasal [facility] Specimen from nose (specimen) Other / Unknown 01/19/2021 10:01 AM EDT 01/21/2021 9:58 PM EDT Narrative Resulting Agency Comment Spec In Lab Hal Canales MD MOLECULAR ORDERABLES [facility] [place] [address] documented in this encounter Visit Diagnoses Not on filedocumented in this encounter
--- OUTSIDE RECORDS SUMMARY | 2024-07-08 14:20 | XMS_ITS | Encounter Summary ---
Author Organization [facility] [place] [address] Care Team Providers Care Adzing And Boring Machine Helper Name Role Phone Unavailable Primary Care Provider Unavailabl e Encounter Details Date Type Department Care Team (Latest Contact Info) Description 10/27/2020 11:07 PM EST - 10/27/2020 11:59 PM EST Hospital Encounter Laboratory [place] [phone] Discharge Disposition: Home Social History Tobacco Use [...] Date/Time Associated Diagnosis Comments COVID-19 PCR Routine 10/27/2020 11:09 AM EST documented in this encounter Results * COVID-19 PCR (10/27/2020 11:09 AM EST) SARS-CoV-2 RNA Not Detected Not Detected [facility] Comment: This result should [...] diagnosis of COVID-19 is performed using the [employer] m SARS-CoV-2 Assay as authorized by the FDA Emergency Use Authorization (EUA). This EUA assay is intended for In-vitro Diagnostic (IVD) use with respiratory specimens such as nasopharyngeal swabs collected from individuals during the acute phase of infection. This assay is performed based on the instructions for use provided by [employer] and additional guidance provided by CDC and FDA. Testing is performed in the Clinical Genomics and Advanced Technology Laboratory within the Department of Pathology and Laboratory Medicine at [facility], certified under the Clinical Laboratory Improvement Amendments [...] fact sheets at the following FDA website: https://www.fda.gov/medical-devices/uztavgogsls-zwxyzop-5899-okprp-11-byuqgarly- use-a kmrrqvgdzdzrk-qzgvbjm-pbfibpf/tqlto-uoqdulyfuke-ekfu SARS-CoV-2 RNA Source Nasal [facility] Specimen from nose (specimen) Other / Unknown 10/27/2020 11:09 AM EST 10/29/2020 3:09 AM EST Narrative Resulting Agency Comment Spec In Lab Hal Canales MD MOLECULAR ORDERABLES [facility] [place] [address] documented in this encounter Visit Diagnoses Not on filedocumented in this encounter
--- OUTSIDE RECORDS SUMMARY | 2024-07-08 14:20 | XMS_ITS | Encounter Summary ---
Author Organization [facility] [place] [address] Care Team Providers Care Customer Experience Strategist Name Role Phone Unavailable Primary Care Provider Unavailabl e Encounter Details Date Type Department Care Team (Latest Contact Info) Description 09/01/2020 11:27 PM EST - 09/01/2020 11:59 PM EST Hospital [place] [phone] Discharge Disposition: Home Social History Tobacco Use [...] Date/Time Associated Diagnosis Comments COVID-19 PCR Routine 09/01/2020 1:45 PM EST documented in this encounter Results * COVID-19 PCR (09/01/2020 1:45 PM EST) SARS-CoV-2 RNA Not Detected Not Detected [facility] Comment: This result should [...] is performed using the Robles RealTime SARS-CoV-2 Assay as authorized by the FDA Emergency Use Authorization (EUA). This EUA assay is intended for In-vitro Diagnostic (IVD) use with respiratory specimens such as nasopharyngeal swabs collected from individuals during the acute phase of infection. This assay is performed based on the instructions for use provided by [employer] and additional guidance provided by CDC and FDA. Testing is performed in the Clinical Genomics and Advanced Technology Laboratory within the Department of Pathology and Laboratory Medicine at [facility], certified under the Clinical Laboratory Improvement Amendments [...] fact sheets at the following FDA website: https://www.fda.gov/medical-devices/hpomummfeks-uuashvn-5260-xikhx-19-hpdqvxgqw- use-a tfxttvschylmm-imowams-nobhljq/qqxjm-xzuefykpxgu-zthz SARS-CoV-2 RNA Source Nasal [facility] Specimen from nose (specimen) Other / Unknown 09/01/2020 1:45 PM EST 09/03/2020 5:20 AM EST Narrative Resulting Agency Comment Spec In Lab Hal Canales MD MOLECULAR ORDERABLES Performing Organization Address City/State/[facility] Co de Phone Number [facility] [place] [address] documented in this encounter Visit Diagnoses Not on filedocumented in this encounter
--- OUTSIDE RECORDS SUMMARY | 2024-07-08 14:20 | XMS_ITS | Encounter Summary ---
Author Organization [facility] [place] [address] Care Team Providers Care Supervisor Laboratory Name Role Phone Unavailable Primary Care Provider Unavailabl e Encounter Details Date Type Department Care Team (Latest Contact Info) Description 11/24/2020 7:08 AM EST - 11/24/2020 11:59 PM EST Hospital Encounter Laboratory [facility] [place] [phone] Discharge Disposition: Home Social History Tobacco Use [...] Date/Time Associated Diagnosis Comments COVID-19 PCR Routine 11/24/2020 1:54 PM EST documented in this encounter Results * COVID-19 PCR (11/24/2020 1:54 PM EST) SARS-CoV-2 RNA Not Detected Not Detected [facility] Comment: This result [...] on the instructions for use provided by [employer] and additional guidance provided by CDC and FDA. Testing is performed in the Clinical Genomics and Advanced Technology Laboratory within the Department of Pathology and Laboratory Medicine at [facility], certified under the Clinical Laboratory Improvement Amendments [...] fact sheets at the following FDA website: https://www.fda.gov/medical-devices/wgpflrcsvbv-tqcbzqh-8622-dlhry-81-pzzzrocxk- use-a djzbprwgnzrwg-qznueuz-ukyfxyr/umrpz-ntypyjhmcgj-xrto SARS-CoV-2 RNA Source Nasal [facility] Specimen from nose (specimen) Other / Unknown 11/24/2020 1:54 PM EST 11/26/2020 3:06 PM EST Narrative Resulting Agency Comment Spec In Lab Hal Canales MD MOLECULAR ORDERABLES Performing Organization Address City/State/[facility] Co de Phone Number [facility] [place] [address] documented in this encounter Visit Diagnoses Not on filedocumented in this encounter
--- OUTSIDE RECORDS SUMMARY | 2024-07-08 14:20 | XMS_ITS | Patient Health Record ---
Author Organization [facility] Address [address] [place] [address] Care Team Providers Care City Auditor Name Role Phone GarnicaKatelyn Primary Care Provider Valerie Aguilar Unavailable [phone] ALLERGIES Allergen (clinical drug ingredient) Drug/Non Drug Allergy documented on EMR Reaction Allergy Type Onset Date Status sulfamethoxazole / trimethoprim bactrim (uncoded) rash Allergy Active levoquin (uncoded) rash Allergy A ctive Keflex (uncoded) rash Allergy Act maureen doxycycline Doxycycline (uncoded) vomit Allergy Active Penicillin (uncoded) rash Allergy Active REASON FOR REFERRAL No Information MEDICATIONS Medication SIG (Take, Route, Frequency, Duration) Notes Start Date End Date Status Flonase 50 MCG/ACT 1 spray in each nost ril Nasally Once a day for 30 days Active Montelukast Sodium 10 MG 1 tablet Orally Once a day for 30 day(s) Active IMMUNIZATIONS Vaccine Route Administration Date Status Comme nts Influenza HISTORY IM Intramuscular 07/07/2020 Administered SOCIAL HISTORY Tobacco Use: Social History Observation Description Date Details (start date - stop date) Never Smoker NA - NA Sex Assigned At : Social History Observation Description Sex Assigned At Unknown SMOKING Question Answer Notes Are you a: nonsmoker PROBLEMS Problem Type ICD Code Onset Dates Problem Status W/U Status Risk SNOMED Code Notes Problem Other hyperlipidemia (E78.4) Active confirmed 14234911 Problem Chronic fatigue (R53.82) Active confirmed 09474889 Problem Sinusitis chronic, ethmoidal (J32.2) Active confirmed 83850804 Problem Urinary incontinence, unspecified type (R32) Active confirmed 632485018 Problem 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 213252508 Problem Non-seasonal allergic rhinitis, unspecified trigger (J30.89) Active confirmed [id number] PLAN OF TREATMENT No Information Insurance Providers Payer Name Payer Address Payer Phone Subscriber Number Group Number Insured Name Patient Relationship to Insured Coverage Start Date Coverage End Date [facility] [address] JAXSON KINNEY [id number] CONNOR WILKINSON Self - patient is the insured [place] [address] CONNOR WILKINSON Self - patient is the insured MEDICAL (GENERAL) HISTORY Surgical History Surgery Date(Month/Year) tubal ligation SINUS OPERATION 2001 Hospitalization History Reason Date(Month/Year) childbirth
--- OUTSIDE RECORDS SUMMARY | 2024-07-08 14:20 | XMS_ITS | Encounter Summary ---
[place] [address] Care Team Providers Care Director Of Patient Safety Name Role Phone Amalia Kya Primary Care Provider [phone] Reason for Referral * Consultation (Routine) - Closed Specialty Diagnoses / Procedures Referred By Contac t Referred To Contact Urology Diagnoses Female genital prolapse, unspecified type Amalia Kay PA [address] [place] [address] [facility] [address] [place] [phone] Referral ID Status Reason Start Date Expiration Date V isits Requested Visits Authorized [id number] Closed Consult, Test & Treat PCP Updated and/or Approved 02/13/2024 02/11/2025 6 6 Encounter Details Date Type Department Care Team (Latest Contact Info) Description 02/28/2024 Transcribe Orders eDH Incoming Referrals [phone] Amalia Kay PA [address] [place] [address] Female genital prolapse, unspecified type Social History Tobacco Use Types Packs/Day Years Used Date Smoking Tobacco: Never Assessed Sex and Gender Information Value Date Recorded Sex Assigned at Not on file Gender Identity Not on file Sexual Orientation Not on file documented as of this encounter Plan of Treatment Scheduled Referrals Name Type Priority Associated Diagnoses Order Schedule Referral to Urogynecology Outpatient Referral Routine Female genital prolapse, unspecified type Ordered: 02/28/2024 documented as of this encounter Visit Diagnoses Diagnosis Female genital prolapse, unspecified type documented in this encounter Care Teams Director Of Patient Safety Relationship Specialty Start Date End Date Amalia Kay PA [address] [place] [address] PCP - General Family Medicine 02/28/24 documented as of this encounter
--- OUTSIDE RECORDS SUMMARY | 2024-07-08 14:20 | XMS_ITS | Clinical Summary ---
Author Organization [facility] [place] [address] Care Team Providers Care Program Coordinator Executive Education Name Role Phone Amalia Kay Primary Care Provider [phone] Allergies Active Allergy Reactions Criticality Noted Date Comments Amoxicillin Rash 06/13/2024 Doxycycline Nausea And Vomiting 06/13/2024 Cephalexin Rash 06/13/2024 Levofloxacin Rash 06/13/2024 Medications Medication Sig Dispensed Refills Start Date End Date Status cholecalciferol, Vitamin D3, 1,250 mcg (50,000 unit) Capsule Take by mouth. Active hydroCHLOROthiazide (Microzide) 12.5 mg capsule Take 12.5 mg by mouth daily. Active montelukast (Singulair) 10 mg tablet Take 10 mg by mouth nightly. Active acetaminophen (Tylenol) 160 mg/5 mL Elixir Take 15 mg/kg/dose by mouth every 6 hours as needed for Fever. Active Social History Tobacco Use Types Packs/Day Years Used Date Smoking Tobacco: Former Cigarettes Smokeless Tobacco: Never Tobacco Cessation:Counseling Given: Not Answered Sex and Gender Information Value Date Recorded Sex Assigned at Not on file Gender Identity Not on file Sexual Orientation Not on file Plan of Treatment Health Maintenance Due Date Last Done Comments CT Colonography 1956 Colonoscopy 1956 Colorectal Cancer Screening 1956 FIT DNA 1956 FIT 1956 Sigmoidoscopy (10 year) with FIT yearly 1956 Sigmoidoscopy 1956 Hepatitis C Screening 1974 Tetanus/Diphtheria/Pertussis Vaccines (1 - Tdap) 09/24 Breast Cancer Share Decision Needed 1996 Breast Cancer screening 1996 Zoster vaccine (1 of 2) 2006 Advance Directive 2011 Bone Density Scan 2021 Pneumoccocal Vaccine: 65+ (1 of 1 - PCV) 2021 Covid-19 Vaccine (24 season) 2024 Influenza (Flu) vaccine (1 o f 1 - Influenza standard series) 06/09/2024 PAP Smear Discontinued 08/04/2020 Procedures Procedure Name Priority Date/Time Associated Diagnosis Comments SHAKE MAKER CYTOLOGY FINAL REPORT Routine 08/04/2020 12:00 PM EDT from Last 3 Months or Most Recently Relevant to Health Maintenance Results * Kidney Puller Cytology Final Report (08/04/2020 12:00 PM EDT) Kidney Puller Cytology Final Report [id number] ? Location: [facility] The signing pathologist has (i) examined the relevant preparation(s) for the specimen(s) and (ii) rendered or confirmed the diagnosis(es). . ? Kidney Puller Final DIAGNOSIS Normal Negative for intraepithelial lesion or malignancy (NILM). For consensus guidelines for the management of cervical cancer screening test results, please see: ?? http://www.asccp.o rg . Electronically signed by: ??Suly OLIVAS(ASCP)Dalia Verified: ??08/20/2020 ?Harness Cleaner Performed at: ??-[facility] Dept[place]ology, [place], [place] HPV RESULTS HPV testing either not indicated or not requested by clinician. STATEMENT OF ADEQUACY Specimen submitted is satisfactory. Endocervical component present. CLINICAL INFORMATION HPV Option: ? Reflex HPV CT/NG Option: ? No Preparation: ?Liquid Based Pap Specimen Source: ?Cervical/Vaginal /LBP LMP: ?Unknown Hysterectomy?: ?No ?: ?No ?: ?No I.U.D.?: ?No Pelvic Radiation: ? No Hist Abnl Pap/Biopsy?: ??No Prior SHAKE MAKER Therapy?: ? No Hist of HPV Vaccine?: ?? No Clinical Data, Significant Therapy and Clinical Impression ?? : ?? _ Referring Identifier: ?(not provided) Note: The Pap test is a screening test for cervical cancer with an inherent false-negative rate dependent upon several variables. For further information please contact the [facility] Laboratory. Reference: Sam KNIGHT. Calendar Control Clerk Blood Bank of Pap Smear Results. In: Qian BS, Oren HH, ed. ??The Pap Smear. [place]: [place], 2002: 71-77. [facility] 08/04/2020 12:0 0 PM EDT Narrative Resulting Agency Comment Spec In Lab / WKS Katelyn Garnica DO PATHOLOGY/CYTOLOGY O RDERABLES [facility] [place] [address] from Last 3 Months or Most Recently Relevant to Health Maintenance Care Teams Program Coordinator Executive Education Relationship Specialty Start Date End Date Amalia Kay PA [address] [place] [address] PCP - General Family Medicine 02/28/24
--- OUTSIDE RECORDS SUMMARY | 2024-07-08 14:20 | XMS_ITS | Encounter Summary ---
Author Organization [facility] [place] [address] Care Team Providers Care Regulatory Compliance Coordinator Name Role Phone Unavailable Primary Care Provider Unavailabl e Encounter Details Date Type Department Care Team (Latest Contact Info) Description 12/22/2020 10:33 PM EDT - 12/22/2020 11:59 PM EDT Hospital [place] [phone] Discharge Disposition: Home Social History Tobacco Use [...] Date/Time Associated Diagnosis Comments COVID-19 PCR Routine 12/22/2020 9:11 AM EDT documented in this encounter Results * COVID-19 PCR (12/22/2020 9:11 AM EDT) SARS-CoV-2 RNA Not Detected Not Detected [facility] Comment: This result should [...] the Aptima SARS Co-V-2 Assay on the [employer] System ([employer] as authorized by the FDA issued [...] Department of Pathology and Laboratory Medicine at [facility], certified under the Clinical Laboratory Improvement [...] fact sheets at the following FDA website: https://www.fda.gov/medical-devices/yhmidbhintl-pvbsztr-3482-biaks-38-rprctniwq- use-a bwnlauacnwqgu-xpkohrg-cfmylzh/feavb-izkmvxttoxs-hmoi SARS-CoV-2 RNA Source Nasal [facility] Specimen from nose (specimen) Other / Unknown 12/22/2020 9:11 AM EDT 12/24/2020 7:26 AM EDT Narrative Resulting Agency Comment Spec In Lab Hal Canales MD MOLECULAR ORDERABLES [facility] [place] [address] documented in this encounter Visit Diagnoses Not on filedocumented in this encounter
--- OUTSIDE RECORDS SUMMARY | 2024-07-08 14:20 | XMS_ITS | Encounter Summary ---
Author Organization [facility] [place] [address] Care Team Providers Care Supervisor Knitting Name Role Phone Unavailable Primary Care Provider Unavailabl e Encounter Details Date Type Department Care Team (Latest Contact Info) Description 08/04/2020 10:05 PM EDT - 08/04/2020 11:59 PM EDT Hospital [place] [phone] Discharge Disposition: Home Social History Tobacco Use Types Packs/Day Years Used Date Smoking Tobacco: Never Assessed Sex and Gender Information Value Date Recorded Sex Assigned at Not on file Gender Identity Not on file Sexual Orientation Not on file documented as of this encounter Plan of Treatment Not on file documented as of this encounter Procedures Procedure Name Priority Date/Time Associated Diagnosis Comments STEAM ROLLER OPERATOR CYTOLOGY INTERPRETATION Routine 08/04/2020 12:00 PM EDT STEAM ROLLER OPERATOR CYTOLOGY FINAL REPORT Routine 08/04/2020 12:00 PM EDT documented in this encounter Results * Lamp Shade Assembler Cytology Final Report (08/04/2020 12:00 PM EDT) Lamp Shade Assembler Cytology Final Report [id number] ? Location: [facility] The signing pathologist has (i) examined the relevant preparation(s) for the specimen(s) and (ii) rendered or confirmed the diagnosis(es). . ? Lamp Shade Assembler Final DIAGNOSIS Normal Negative for intraepithelial lesion or malignancy (NILM). For consensus guidelines for the management of cervical cancer screening test results, please see: ?? http://www.asccp.o rg . Electronically signed by: ??Suly CT(ASCP), Dalia Cutler Verified: ??08/20/2020 ?Product Ambassador Performed at: ??-[facility] [place], [place], [place] HPV RESULTS HPV testing either not indicated or not requested by clinician. STATEMENT OF ADEQUACY Specimen submitted is satisfactory. Endocervical component present. CLINICAL INFORMATION HPV Option: ? Reflex HPV CT/NG Option: ? No Preparation: ?Liquid Based Pap Specimen Source: ?Cervical/Vaginal /LBP LMP: ?Unknown Hysterectomy?: ?No ?: ?No ?: ?No I.U.D.?: ?No Pelvic Radiation: ? No Hist Abnl Pap/Biopsy?: ??No Prior STEAM ROLLER OPERATOR Therapy?: ? No Hist of HPV Vaccine?: ?? No Clinical Data, Significant Therapy and Clinical Impression ?? : ?? _ Referring Identifier: ?(not provided) Note: The Pap test is a screening test for cervical cancer with an inherent false-negative rate dependent upon several variables. For further information please contact the [facility]. Reference: Sma KNIGHT. Database Administration Project Manager of Pap Smear Results. In: Qian BS, Oren HH, ed. ??The Pap Smear. [place]: [place], 2002: 71-77. [facility] 08/04/2020 12:0 0 PM EDT Narrative Resulting Agency Comment Spec In Lab / WKS Katelyn R Danika DO PATHOLOGY/CYTOLOGY O RDERABLES [facility] [place] [address] * STEAM ROLLER OPERATOR Cytology Interpretation (08/04/2020 12:00 PM EDT) Lamp Shade Assembler Cytology Interpretation [facility] Comment:Lamp Shade Assembler Cytology Final R eport Endocervical Component Present [facility] AP Specimen 08/04/2020 12:0 0 PM EDT 08/20/2020 12:37 PM EST Narrative Resulting Agency Comment Spec In Lab / WKS Katelyn R Danika DO PATHOLOGY/CYTOLOGY O RDERABLES [facility] [place] [address] documented in this encounter Visit Diagnoses Not on filedocumented in this encounter
== END 2024-07-08 13:57 | disposition home or self-care (01) ==
LOC: NCHCN 13:56
PROVIDERS: PCP Nurse Practitioner Family; Visit Provider Nurse Practitioner Family
DX: N39.0 Urinary tract infection, site not specified (principal); R82.89 Other abnormal findings on cytological and histological examination of urine
CPT/HCPCS: 87086

== ENCOUNTER 2025-01-01 14:12 | Outpatient (REF) | payer MEDICARE, SELFPAY ==
[2025-01-01 15:46] LABS: Folate 15.6 ng/mL (8.6-20.0); TSH (W/Ref FT4) 0.62 uIU/mL (0.36-3.74); Vitamin B12 551 pg/mL (193-986)
[2025-01-02 12:33] LABS: Lyme Ab w Rflx to Lyme Confirm Negative (Negative)
[2025-01-04 00:13] LABS: Anaplasma phagocytophilum Negative (Negative); B. miyamotoi PCR Negative (Negative); Babesia divergens/MO-1 Negative (Negative); Babesia duncani Negative (Negative); Babesia microti Negative (Negative); Ehrlichia chaffeensis Negative (Negative); Ehrlichia ewingii/canis Negative (Negative); Ehrlichia muris eauclairensis Negative (Negative)
== END 2025-01-01 14:13 | disposition home or self-care (01) ==
LOC: NCHCN 14:12
PROVIDERS: PCP Nurse Practitioner Family; Visit Provider Physician Assistant Medical
DX: G45.4 Transient global amnesia (principal)
CPT/HCPCS: 87798; 82607; 82746; 84443; 86618

== ENCOUNTER 2025-06-16 12:13 | Outpatient (REF) | payer MEDICARE, SELFPAY ==
[2025-06-16 16:10] LABS: ALT 26 U/L (14-59); AST 23 U/L (15-37); Albumin 3.7 g/dL (3.4-5.0); Alkaline Phosphatase 130 U/L (46-116); Anion Gap 8.4 mmol/L (3-11); BUN 12 mg/dL (7-18); Bilirubin, Total 0.7 mg/dL (0.2-1.0); CO2 30.6 mmol/L (21.0-32.0); Calcium 9.2 mg/dL (8.5-10.1); Calculated LDL 132 mg/dL (<100); Chloride 99 mmol/L (98-107); Cholesterol 226 mg/dL (<200); Estimated GFR 94.15 (mL/min/1.73m2); Ferritin 132 ng/mL (8-252); Glucose 121 mg/dL (74-106); HDL Cholesterol 76 mg/dL (>or=50); Magnesium 2.2 mg/dL (1.8-2.4); Potassium 4.1 mmol/L (3.5-5.1); Sodium 138 mmol/L (136-145); Total Protein 7.0 g/dL (6.4-8.2); Triglyceride 91 mg/dL (<150)
== END 2025-06-16 12:14 | disposition home or self-care (01) ==
LOC: NCHCN 12:13
PROVIDERS: PCP Nurse Practitioner Family; Visit Provider Physician Assistant Medical
DX: G47.61 Periodic limb movement disorder (principal); I10 Essential (primary) hypertension
CPT/HCPCS: 80053; 80061; 82728; 83735